=== PATIENT | male | born 1950 | race Caucasian/White ===

== ENCOUNTER 2017-11-19 06:00 | Emergency (ER) | payer OTHER ==
[2017-11-19] MEDS ORDERED: Sodium Chloride 0.9% 10 ML Syringe FLUSH PRN (06:08)
--- NOTE | 2017-11-19 06:18 | EDM.PDOC ---
ED HPI GENERAL MEDICAL PROBLEM - General Chief Complaint: Respiratory Problem Stated Complaint: SOB Time Seen by Provider: 11/19/17 06:00 Source of Information: Reports: EMS, Other ([facility] alf nurse's) - History of Present Illness INITIAL COMMENTS - FREE TEXT/NARRATIVE: Patient woke up around 4:00 in the morning complaining of shortness of breath very anxious was given up when necessary Ativan and a DuoNeb and put on when necessary oxygen at 4 L was satting around 91% with 4 L without oxygen he was at 85% paramedics were dispatched to the [facility] and the patient was brought here by [facility] ambulance patient has history of CVA affecting the left side history of COPD diabetes mellitus2 PTSD vascular dementia left- sided weakness following CVA. 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 (4:30 AM) - Related Data Allergies Allergy/AdvReac Type Severity Reaction Status Date / Time gabapentin Allergy Cannot Verified 10/28/16 04:19 Remember hydrocodone Allergy Cannot Verified 10/28/16 04:19 Remember onabotulinumtoxinA Allergy Weakness Verified 10/28/16 04:19 [From Botox] propoxyphene Allergy Cannot Verified 10/28/16 04:19 Remember tizanidine Allergy Cannot Verified 10/28/16 04:19 Remember tramadol Allergy Weakness Verified 10/28/16 04:19 Home Meds: Home Meds Acetaminophen 650 mg PO Q4HR PRN 04/06/15 [History] Acetaminophen [Acetaminophen Extra Strength] 1,000 mg PO BID 04/06/15 [History] Albuterol/Ipratropium [DuoNeb 3.0-0.5 MG/3 ML] 3 ml NEB BID 04/06/15 [History] Albuterol/Ipratropium [DuoNeb 3.0-0.5 MG/3 ML] 3 ml NEB Q6HR PRN 04/06/15 [ History] Aspirin [Ecotrin] 325 mg PO DAILY 04/06/15 [History] Baclofen 5 mg PO BID@08,20 04/06/15 [History] DULoxetine [Cymbalta] 60 mg PO DAILY 04/06/15 [History] Docusate Sodium [Colace] 100 mg PO BID@08,18 04/06/15 [History] Fluocinonide [Lidex 0.05% Oint] 30 gm TOP BID PRN 04/06/15 [History] Hydrocortisone [Preparation H] 1 applic TP BID PRN 04/06/15 [History] LORazepam 0.5 mg PO BID@08,21 04/06/15 [History] Lisinopril 40 mg PO DAILY 04/06/15 [History] Magnesium Hydroxide [Milk of Magnesia] 30 ml PO BID PRN 04/06/15 [History] Melatonin/Pyridoxine HCl (B6) [Melatonin 3 mg Tablet] 1 each PO BEDTIME [History] Menthol [Biofreeze] 1 applic TOP QID PRN 04/06/15 [History] Mometasone Furoate [Asmanex 220 MCG] 1 puff INH BEDTIME 04/06/15 [History] Multivitamin [Gummi Bear Multivitamin] 1 tab PO DAILY 04/06/15 [History] Non-Formulary Medication [NF Drug] 1 lozenge PO ASDIRECTED PRN 04/06/15 [History ] OLANZapine [Olanzapine] 5 mg PO DAILY@199904/06/15 [History] Pantoprazole [Pantoprazole Sodium] 20 mg PO BID 04/06/15 [History] Polyvinyl Alcohol/Povidone [Refresh] 1 each EYEBOTH BID@,04/06/15 [History] Ranitidine [Zantac] 300 mg PO DAILY@199904/06/15 [History] Salmeterol Xinafoate [Serevent Diskus] 1 puff INH BID@,04/06/15 [History] Simethicone 160 mg PO TIDMEALS 04/06/15 [History] Sodium Chloride 0.9% 1 vial INH Q4HR PRN 04/06/15 [History] guaiFENesin/Dextromethorphan [Tussin Dm Liquid] 10 ml PO Q6HR PRN 04/06/15 [ History] Albuterol Sulfate [Proair Respiclick] 2 puff INH Q4H PRN 05/08/16 [History] Finasteride 5 mg PO DAILY@1800 05/08/16 [History] Insulin Aspart [NovoLOG] 10 unit SQ TIDMEALS 05/08/16 [History] Insulin Glargine,Hum.Rec.Anlog [Lantus Solostar] 56 unit SQ DAILY 05/08/16 [ History] LORazepam 0.5 mg PO BID PRN 05/08/16 [History] Loratadine 10 mg PO DAILY@2200 05/08/16 [History] Polyethylene Glycol 3350 [MiraLAX] 17 gm PO DAILY PRN 05/08/16 [History] amLODIPine [Norvasc] 5 mg PO BID 05/08/16 [History] Calcium Carb/Magnesium Hydrox [Antacid 1000-200 mg Tab Chew] 2 each PO Q4HR PRN 07/02/16 [History] Mag Hydrox/Al Hydrox/Simeth [Maalox Maximum Strength Susp] 15 - 30 ml PO Q4HR PRN 07/02/16 [History] Metoprolol Tartrate 100 mg PO BID 07/02/16 [History] Furosemide [Lasix] 40 mg PO DAILY #30 tablet 07/04/16 [Rx] Simvastatin [Zocor] 20 mg PO BEDTIME #30 tablet 07/04/16 [Rx] Carboxymethylcellulose/Lytes [Alphonse-Stir Oral Protivin] 1 spray PO Q2HR PRN 07/29/16 [History] Doxazosin [Cardura] 2 mg PO BID 07/29/16 [History] Gluc/Avtar-Msm#2/C/D3/Gurjit/Born [Uyohptnaqw-Xtngvxnutsi-CZK] 1 each PO BID [History] Non-Formulary Medication [NF Drug] 10 ml SSPIT Q4HR PRN 07/29/16 [History] Insulin Lispro [HumaLOG] See Protocol SUBCUT QIDACANDBED #1 pen 07/30/16 [Rx] Nitroglycerin 0.4 mg SL ASDIRECTED #20 tab.subl 07/30/16 [Rx] Bisacodyl 10 mg RC DAILY PRN 10/27/16 [History] Budesonide/Formoterol [Symbicort 160-4.5 MCG] 2 puff INH BID 10/27/16 [History] Fenofibrate,Micronized [Fenofibrate] 130 mg PO DAILY 10/27/16 [History] Pseudoephedrine HCl [Sudafed] 30 mg PO QID PRN 10/27/16 [History] Acetaminophen/oxyCODONE [Percocet 325-5 MG] 1 tab PO Q6H PRN #12 tablet [Rx] Past Medical History HEENT History: Reports: Allergic Rhinitis Other HEENT History: insufficient tears Cardiovascular History: Reports: Aneurysm, High Cholesterol, Hypertension Respiratory History: Reports: COPD, Sleep Apnea Gastrointestinal History: Reports: GERD, Other (See Below) Other Gastrointestinal History: constipation Other Genitourinary History: disorder of bladder Musculoskeletal History: Reports: Osteoarthritis Other Musculoskeletal History: disuse atrophy Neurological History: Reports: CVA, Other (See Below) Other Neuro History: hemiplegia, involuntary movements, cerebral atherosclerosis Psychiatric History: Reports: Anxiety, Depression, PTSD Endocrine/Metabolic History: Reports: Diabetes, Type II Immunologic History: Reports: None Oncologic (Cancer) History: Reports: None Dermatologic History: Reports: Cellulitis Other Dermatologic History: dermatitis - Past Surgical History Head Surgeries/Procedures: Reports: None Oncologic Surgical History: Reports: None Social & Family History - Family History Family Medical History: Noncontributory - Tobacco Use Smoking Status *Q: Former Smoker Used Tobacco, but Quit: Yes Month Tobacco Last Used: 16 YEARS Second Hand Smoke Exposure: No - Caffeine Use Caffeine Use: Reports: Coffee, Soda - Recreational Drug Use Recreational Drug Use: No ED ROS GENERAL - Review of Systems Review Of Systems: See Below Constitutional: Reports: Fever, Chills, Weakness HEENT: Reports: No Symptoms Respiratory: Reports: Shortness of Breath Endocrine: Reports: High Glucose (270) GI/Abdominal: Reports: No Symptoms : Reports: No Symptoms Musculoskeletal: Reports: Other (Left-sided hemiplegia secondary to CVA) Skin: Reports: No Symptoms Neurological: Reports: No Symptoms, Trouble Speaking (Increased), Other (Less verbal responsive) Psychiatric: Reports: Anxiety Free Text/Narrative/Comment: Patient is a 67-year-old who lives in the [facility] home was transferred to the hospital secondary to changes patient woke up at 4 AM with shortness of breath anxious saturations were 85% on room air he received an Ativan and a DuoNeb at that time I was placed on oxygen 4 L his sats eliseo to 91 % his temperature was 101.8 respiration rate elevated 28/m conditions did not improve despite nurses attempts ED EXAM, GENERAL - Physical Exam Exam: See Below Exam Limited By: Respiratory Distress General Appearance: WD/WN, Anxious, Moderate Distress Ears: Normal External Exam, Normal Canal, Hearing Grossly Normal, Normal TMs Ear Exam: Bilateral Ear: Auricle Normal, Canal Normal, TM normal Nose: Normal Inspection, Normal Mucosa, No Blood Throat/Mouth: Normal Inspection, Normal Lips, Normal Teeth, Normal Gums, Normal Oropharynx, Normal Voice, No Airway Compromise Head: Atraumatic, Normocephalic Neck: Normal Inspection, Supple, Non-Tender, Full Range of Motion Respiratory/Chest: Lungs Clear, Respiratory Distress, Other (Tachypneic) Cardiovascular: Regular Rate, Rhythm, Tachycardia GI/Abdominal: Pelvis Stable, Distended, Abnormal Bowel Sounds. No: Hernia, Mass , Hepatomegaly, Splenomegaly (Male) Exam: Deferred Rectal (Males) Exam: Deferred Extremities: No: Joint Swelling, Arm Pain, Teresa's Sign, Leg Pain, Increased Warmth, Mottled Neurological: Normal Gait. No: Alert, Oriented, Normal Cognition, Normal Reflexes Psychiatric: Anxious Skin Exam: Warm, Dry Lymphatic: No Adenopathy Course - Vital Signs Last Recorded V/S: Last Vital Signs Temp 103.3 F H 11/19/17 06:02 Pulse 129 H 11/19/17 06:02 Resp 30 H 11/19/17 06:02 BP 149/67 H 11/19/17 06:02 Pulse Ox 93 L 11/19/17 06:02 - Orders/Labs/Meds Orders: Active Orders 24 hr Category Date Time Status EKG Documentation Completion [RC] ASDIRECTED Care 11/19/17 06:09 Active Hull Catheter Insertion [Insert Urinary Catheter] [OM. Care 11/19/17 07:00 Ordered PC] Q24H Oxygen Therapy [RC] PRN Care 11/19/17 06:08 Active Urinary Catheter Assessment [RC] ASDIRECTED Care 11/19/17 06:58 Active Chest 1V Frontal [CR] Stat Exams 11/19/17 06:07 Taken CULTURE BLOOD [BC] Stat Lab 11/19/17 06:15 Received CULTURE BLOOD [BC] Stat Lab 11/19/17 06:19 Received Levofloxacin/Dextrose 5%-Water [Levaquin in D5W 750 MG/ Med 11/19/17 07:00 Active 150 ML] 750 mg Premix Bag 1 bag IV ONETIME Sodium Chloride 0.9% [Saline Flush] Med 11/19/17 06:08 Active 10 ml FLUSH ASDIRECTED PRN metroNIDAZOLE/Normal Saline [Flagyl 500 MG in NS 100 ML Med 11/19/17 07:15 Active ] 500 mg Premix Bag 1 bag IV Q8H Blood Culture x2 Reflex Set [OM.PC] Stat Oth 11/19/17 06:07 Ordered Saline Lock Insert [OM.PC] Stat Oth 11/19/17 06:08 Ordered Medication Orders Levofloxacin/Dextrose 750 mg/ (Premix) 150 mls @ 100 mls/hr IV ONETIME ONE Stop: 11/19/17 08:29 Last Admin: 11/19/17 07:30 Dose: 100 mls/hr Metronidazole 500 mg/ Premix 100 mls @ 100 mls/hr IV Q8H CHRIS Sodium Chloride (Saline Flush) 10 ml FLUSH ASDIRECTED PRN PRN Reason: Keep Vein Open Labs: Laboratory Tests 11/19/17 11/19/17 11/19/17 Range/Units 06:15 06:19 06:19 WBC (4.0-10.2) K/uL RBC (4.33-5.41) M/uL Hgb (13.1-16.8) g/dL Hct (39.0-49.0) % MCV (84.0-98.0) fL MCH (28.2-33.3) pg MCHC (31.7-36.0) g/dL RDW (11.2-14.1) % Plt Count (150-350) K/uL Neut % (Auto) (45.0-80.0) % Lymph % (Auto) (10.0-50.0) % Ellis % (Auto) (2.0-14.0) % Eos % (Auto) (0.0-5.0) % Baso % (Auto) (0.0-2.0) % Neut # (Auto) (1.40-7.00) K/uL Lymph # (Auto) (0.50-3.50) K/uL Ellis # (Auto) (0.00-1.00) K/uL Eos # (Auto) (0.00-0.50) K/uL Baso # (Auto) (0.00-0.20) K/uL D-Dimer, Quantitative 318 (0-400) ng/mL Sodium 139 (136-145) mmol/L Potassium 4.3 (3.5-5.1) mmol/L Chloride 102 (98-107) mmol/L Carbon Dioxide 24.5 (21.0-32.0) mmol/L BUN 31 H (7-18) mg/dL Creatinine 1.50 H (0.51-1.17) mg/dL Est Cr Clr Drug Dosing 47.79 mL/min Estimated GFR (MDRD) 47 mL/min Glucose 189 H (74-106) mg/dL Lactic Acid (0.4-2.0) mmol/L Calcium 9.3 (8.5-10.1) mg/dL Troponin I 0.460 H* (0.000-0.056) ng/mL Specimen Type Urine Color Urine Appearance Urine pH (5.0-9.0) Ur Specific [place] (1.005-1.030) Urine Protein (NEGATIVE) mg/dL Urine Glucose (UA) (NEGATIVE) mg/dL Urine Ketones (NEGATIVE) mg/dL Urine Occult Blood (NEGATIVE) Urine Nitrite (NEGATIVE) Urine Bilirubin (NEGATIVE) Urine Urobilinogen (0.2-1.0) E.U./dL Ur Leukocyte Esterase (NEGATIVE) Urine RBC /HPF Urine WBC /HPF Ur Epithelial Cells /LPF Urine Bacteria (NONE TO FEW) /HPF 11/19/17 11/19/17 11/19/17 Range/Units 06:40 06:40 07:17 WBC 19.1 H (4.0-10.2) K/uL RBC 4.44 (4.33-5.41) M/uL Hgb 12.8 L (13.1-16.8) g/dL Hct 37.8 L (39.0-49.0) % MCV 85.1 (84.0-98.0) fL MCH 28.8 (28.2-33.3) pg MCHC 33.9 (31.7-36.0) g/dL RDW 14.1 (11.2-14.1) % Plt Count 238 (150-350) K/uL Neut % (Auto) 84.0 H (45.0-80.0) % Lymph % (Auto) 6.1 L (10.0-50.0) % Ellis % (Auto) 9.4 (2.0-14.0) % Eos % (Auto) 0.3 (0.0-5.0) % Baso % (Auto) 0.2 (0.0-2.0) % Neut # (Auto) 16.04 H (1.40-7.00) K/uL Lymph # (Auto) 1.16 (0.50-3.50) K/uL Ellis # (Auto) 1.79 H (0.00-1.00) K/uL Eos # (Auto) 0.05 (0.00-0.50) K/uL Baso # (Auto) 0.04 (0.00-0.20) K/uL D-Dimer, Quantitative (0-400) ng/mL Sodium (136-145) mmol/L Potassium (3.5-5.1) mmol/L Chloride (98-107) mmol/L Carbon Dioxide (21.0-32.0) mmol/L BUN (7-18) mg/dL Creatinine (0.51-1.17) mg/dL Est Cr Clr Drug Dosing mL/min Estimated GFR (MDRD) mL/min Glucose (74-106) mg/dL Lactic Acid 1.5 (0.4-2.0) mmol/L Calcium (8.5-10.1) mg/dL Troponin I (0.000-0.056) ng/mL Specimen Type Urinfol Urine Color Yellow Urine Appearance Clear Urine pH 5.5 (5.0-9.0) Ur Specific [place] 1.015 (1.005-1.030) Urine Protein 100 H (NEGATIVE) mg/dL Urine Glucose (UA) 250 H (NEGATIVE) mg/dL Urine Ketones Negative (NEGATIVE) mg/dL Urine Occult Blood Small H (NEGATIVE) Urine Nitrite Negative (NEGATIVE) Urine Bilirubin Negative (NEGATIVE) Urine Urobilinogen 1.0 (0.2-1.0) E.U./dL Ur Leukocyte Esterase Negative (NEGATIVE) Urine RBC 0-5 /HPF Urine WBC 0-5 /HPF Ur Epithelial Cells Few /LPF Urine Bacteria Few (NONE TO FEW) /HPF Meds: Medications Generic Name Dose Route Start Last Admin Trade Name Freq PRN Reason Stop Dose Admin Levofloxacin/Dextrose 750 mg/ 150 mls @ 100 mls/hr 11/19/17 07:00 11/19/17 07 :30 Premix IV 11/19/17 08:29 100 mls/hr ONETIME ONE Administration Metronidazole 500 mg/ Premix 100 mls @ 100 mls/hr 11/19/17 07:15 IV Q8H CHRIS Sodium Chloride 10 ml 11/19/17 06:08 Saline Flush FLUSH ASDIRECTED PRN Keep Vein Open Discontinued Medications Generic Name Dose Route Start Last Admin Trade Name Debbie PRN Reason Stop Dose Admin Morphine Sulfate 2 mg 11/19/17 07:43 Morphine IVPUSH 11/19/17 07:44 ONETIME ONE Departure - Departure Time of Disposition: 07:37 Disposition: DC/Tfer to Acute Hospital 02 Condition: Serious Clinical Impression: Pneumonia - Discharge Information Referrals: Padmini Reyes MD [Primary Care Provider] - Forms: ED Department Discharge Care Plan Goals: Patient is a status post stroke who presents with pneumonia like symptoms anxiety shortness of breath chest x-ray revealed left lower lobe pneumonia white count was elevated at 19.1 so [facility]49 [facility] with [facility] opacities so [facility] transfer r was called - Problem List & Annotations (1) Pneumonia SNOMED Code(s): 545531463 Code(s): J18.9 - PNEUMONIA, UNSPECIFIED ORGANISM Status: Acute Annotation /Comment:: Patient started on antibiotics discussed with physician at [facility] will transfer via ambulance (2) Respiratory distress SNOMED Code(s): 415117049 Code(s): R06.00 - DYSPNEA, UNSPECIFIED Status: Acute (3) Anxiety SNOMED Code(s): 13240862 Code(s): F41.9 - ANXIETY DISORDER, UNSPECIFIED Status: Acute Annotation/ Comment:: Patient given Ativan at the alf will give morphine sulfate at this time (4) Status post CVA SNOMED Code(s): 742732124 Code(s): Z86.73 - PRSNL HX OF TIA (TIA), AND CEREB INFRC W/O RESID DEFICITS Status: Acute (5) Status post CVA SNOMED Code(s): 224825010 Code(s): Z86.73 - PRSNL HX OF TIA (TIA), AND CEREB INFRC W/O RESID DEFICITS Status: Acute - Problem List Review Problem List Initiated/Reviewed/Updated: Yes - My Orders Last 24 Hours: My Active Orders 11/19/17 06:07 Chest 1V Frontal [CR] Stat Blood Culture x2 Reflex Set [OM.PC] Stat 11/19/17 06:08 Oxygen Therapy [RC] PRN Sodium Chloride 0.9% [Saline Flush] 10 ml FLUSH ASDIRECTED PRN Saline Lock Insert [OM.PC] Stat 11/19/17 06:09 EKG Documentation Completion [RC] ASDIRECTED 11/19/17 06:15 CULTURE BLOOD [BC] Stat 11/19/17 06:19 CULTURE BLOOD [BC] Stat 11/19/17 06:58 Urinary Catheter Assessment [RC] ASDIRECTED 11/19/17 07:00 Hull Catheter Insertion [Insert Urinary Catheter] [OM.PC] Q24H Levofloxacin/Dextrose 5%-Water [Levaquin in D5W 750 MG/150 ML] 750 mg Premix Bag 1 bag IV ONETIME 11/19/17 07:15 metroNIDAZOLE/Normal Saline [Flagyl 500 MG in NS 100 ML] 500 mg Premix Bag 1 bag IV Q8H - Assessment/Plan Last 24 Hours: My Active Orders 11/19/17 06:07 Chest 1V Frontal [CR] Stat Blood Culture x2 Reflex Set [OM.PC] Stat 11/19/17 06:08 Oxygen Therapy [RC] PRN Sodium Chloride 0.9% [Saline Flush] 10 ml FLUSH ASDIRECTED PRN Saline Lock Insert [OM.PC] Stat 11/19/17 06:09 EKG Documentation Completion [RC] ASDIRECTED 11/19/17 06:15 CULTURE BLOOD [BC] Stat 11/19/17 06:19 CULTURE BLOOD [BC] Stat 11/19/17 06:58 Urinary Catheter Assessment [RC] ASDIRECTED 11/19/17 07:00 Hull Catheter Insertion [Insert Urinary Catheter] [OM.PC] Q24H Levofloxacin/Dextrose 5%-Water [Levaquin in D5W 750 MG/150 ML] 750 mg Premix Bag 1 bag IV ONETIME 11/19/17 07:15 metroNIDAZOLE/Normal Saline [Flagyl 500 MG in NS 100 ML] 500 mg Premix Bag 1 bag IV Q8H Plan: Patient is status post CVA with left-sided weakness at this time stable
[2017-11-19] MEDS ORDERED: Levofloxacin/Dextrose 5%-Water 750 MG in Premix Bag 1 BAG IV ONE (07:00)
[2017-11-19] MEDS ORDERED: metroNIDAZOLE/Normal Saline 500 MG in Premix Bag 1 BAG IV SCH (07:15)
[2017-11-19] MEDS ORDERED: Morphine 2 MG/ML Syringe ONE (07:43)
[2017-11-19] MEDS ORDERED: Morphine 2 MG/ML Syringe IVPUSH ONE (07:43)
[2017-11-19] MEDS ORDERED: Metoprolol Tartrate 5 MG/5 ML SDV IVPUSH ONE (07:55)
[2017-11-19] MEDS ORDERED: Metoprolol Tartrate 50 MG Tab PO ONE (07:56)
[2017-11-19 08:46] VITALS: BP 121/46
== END 2017-11-19 08:45 ==
LOC: LL.ED 06:00
DX: J18.9 Pneumonia, unspecified organism (principal); E78.00 Pure hypercholesterolemia, unspecified; I10 Essential (primary) hypertension; K21.9 Gastro-esophageal reflux disease without esophagitis; E11.9 Type 2 diabetes mellitus without complications; Z87.891 Personal history of nicotine dependence; Z88.8 Allergy status to other drugs, medicaments and biological substances; Z88.6 Allergy status to analgesic agent; Z79.82 Long term (current) use of aspirin; Z79.899 Other long term (current) drug therapy; Z79.4 Long term (current) use of insulin
CPT/HCPCS: 36415; 51702; 71045; 80048; 81001; 83605; 84484; 85025; 85379; 87040; 87804; 93005; 94761; 96365; 96375; 99285; A9270; J1956; J2270; 93010; J3490

== ENCOUNTER 2018-01-03 03:22 | Emergency (ER) | payer MEDICARE, OTHER ==
[2018-01-03] MEDS ORDERED: Sodium Chloride 0.9% 10 ML Syringe FLUSH PRN (03:31)
--- NOTE | 2018-01-03 04:14 | EDM.PDOC ---
ED HPI GENERAL MEDICAL PROBLEM - General Chief Complaint: Respiratory Problem Stated Complaint: cough, SOB Time Seen by Provider: 01/03/18 03:53 Source of Information: Reports: Patient History Limitations: Reports: Other (Hx CVA/vascular dementia/slurred speech) - History of Present Illness INITIAL COMMENTS - FREE TEXT/NARRATIVE: Patient sent here for evaluation due to congested cough/respiratory illness that has been present for several days. No fevers. No GI changes. Patient denies HEENT changes. Complains of cough and of not being able to cough out his respiratory secretions well. [place] gave him a neb prior to coming. [place] staff do not report any other changes. No other specific changes/complaints per patient and staff. - Related Data Allergies Allergy/AdvReac Type Severity Reaction Status Date / Time gabapentin Allergy Cannot Verified 01/03/18 03:31 Remember hydrocodone Allergy Cannot Verified 01/03/18 03:31 Remember onabotulinumtoxinA Allergy Weakness Verified 01/03/18 03:31 [From Botox] propoxyphene Allergy Cannot Verified 01/03/18 03:31 Remember tizanidine Allergy Cannot Verified 01/03/18 03:31 Remember tramadol Allergy Weakness Verified 01/03/18 03:31 Home Meds: Home Meds Acetaminophen 650 mg PO Q4HR PRN 04/06/15 [History] Acetaminophen [Acetaminophen Extra Strength] 1,000 mg PO BID 04/06/15 [History] Albuterol/Ipratropium [DuoNeb 3.0-0.5 MG/3 ML] 3 ml NEB Q6HR PRN 04/06/15 [ History] Baclofen 5 mg PO BID@,04/06/15 [History] DULoxetine [Cymbalta] 30 mg PO DAILY 04/06/15 [History] Docusate Sodium [Colace] 100 mg PO BID@,18 04/06/15 [History] Fluocinonide [Lidex 0.05% Oint] 1 applic TOP BID PRN 04/06/15 [History] LORazepam 0.5 mg PO BID@08,04/06/15 [History] Magnesium Hydroxide [Milk of Magnesia] 30 ml PO BID PRN 04/06/15 [History] Melatonin/Pyridoxine HCl (B6) [Melatonin 3 mg Tablet] 2 tab PO BEDTIME 04/06/15 [History] Menthol [Biofreeze] 1 applic TOP QID PRN 04/06/15 [History] OLANZapine [Olanzapine] 5 mg PO DAILY@199904/06/15 [History] Pantoprazole [Pantoprazole Sodium] 20 mg PO BID 04/06/15 [History] Polyvinyl Alcohol/Povidone [Refresh] 1 each EYEBOTH BID@08,20 04/06/15 [History] Sodium Chloride 0.9% 1 vial INH Q4HR PRN 04/06/15 [History] guaiFENesin/Dextromethorphan [Tussin Dm Liquid] 10 ml PO Q6HR PRN 04/06/15 [ History] Finasteride 5 mg PO DAILY@1800 05/08/16 [History] Insulin Aspart [NovoLOG] 20 unit SQ TIDMEALS 05/08/16 [History] Insulin Glargine,Hum.Rec.Anlog [Lantus Solostar] 70 unit SQ DAILY 05/08/16 [ History] LORazepam 0.5 mg PO DAILY PRN 05/08/16 [History] Loratadine 10 mg PO DAILY@2200 05/08/16 [History] Polyethylene Glycol 3350 [MiraLAX] 17 gm PO DAILY PRN 05/08/16 [History] amLODIPine [Norvasc] 5 mg PO DAILY 05/08/16 [History] Carboxymethylcellulose/Lytes [Alphonse-Stir Oral [place]] 1 spray PO Q2HR PRN 07/29/16 [History] Doxazosin [Cardura] 2 mg PO BID 07/29/16 [History] Gluc/Avtar-Msm#2/C/D3/Gurjit/Born [Zaxmqtusjt-Lbzkewflpcj-ZOP] 1 each PO BID [History] Bisacodyl 10 mg RC DAILY PRN 10/27/16 [History] Budesonide/Formoterol [Symbicort 160-4.5 MCG] 2 puff INH BID 10/27/16 [History] Pseudoephedrine HCl [Sudafed] 30 mg PO Q6H PRN 10/27/16 [History] Albuterol Sulfate [Proair Respiclick] 2 puff INH Q4H PRN 11/19/17 [History] Benzocaine [Anbesol 20% Maximum Strength] 1 gram PO ASDIRECTED PRN 11/19/17 [ History] DULoxetine [Cymbalta] 60 mg PO DAILY 11/19/17 [History] Ipratropium/Albuterol Sulfate [Iprat-Albut 0.5-3(2.5) MG/3 ML] 2.5 mg NEB BID [History] Mag Hydrox/Al Hydrox/Simeth [Alum-Mag Hydroxide-Simeth Liq] 15 - 30 ml PO Q4HR PRN 11/19/17 [History] Menthol [Ricola] 1.1 mg MM QID PRN 11/19/17 [History] Mineral Oil/Petrolat/Phenyleph [Preparation H Oint] 1 unit TOP BID PRN 11/19/17 [History] Nitroglycerin 0.4 mg SL ASDIRECTED PRN 11/19/17 [History] Aspirin 81 mg PO DAILY 01/03/18 [History] Benzonatate [Tessalon Perle] 100 mg PO TID PRN #20 capsule 01/03/18 [Rx] Clopidogrel [Plavix] 75 mg PO DAILY 01/03/18 [History] Doxycycline [Vibramycin] 100 mg PO BID #14 cap 01/03/18 [Rx] Fenofibrate 160 mg PO DAILY 01/03/18 [History] Furosemide 20 mg PO DAILY 01/03/18 [History] Lisinopril 10 mg PO DAILY 01/03/18 [History] Metoprolol Succinate [Toprol XL] 200 mg PO DAILY 01/03/18 [History] atorvaSTATin [Lipitor] 40 mg PO DAILY 01/03/18 [History] Past Medical History HEENT History: Reports: Allergic Rhinitis Other HEENT History: insufficient tears Cardiovascular History: Reports: Aneurysm, High Cholesterol, Hypertension, [place] Respiratory History: Reports: COPD, Sleep Apnea Gastrointestinal History: Reports: GERD, Other (See Below) Other Gastrointestinal History: constipation Genitourinary History: Reports: Other (See Below) Other Genitourinary History: disorder of bladder Musculoskeletal History: Reports: Osteoarthritis, Other (See Below) Other Musculoskeletal History: disuse atrophy Neurological History: Reports: CVA, Other (See Below) Other Neuro History: hemiplegia, involuntary movements, cerebral atherosclerosis Psychiatric History: Reports: Anxiety, Depression, PTSD Endocrine/Metabolic History: Reports: Diabetes, Type II, Obesity/BMI 30+ Immunologic History: Reports: None Oncologic (Cancer) History: Reports: None Dermatologic History: Reports: Cellulitis Other Dermatologic History: dermatitis - Past Surgical History Head Surgeries/Procedures: Reports: None Oncologic Surgical History: Reports: None Social & Family History - Family History Family Medical History: Noncontributory - Tobacco Use Smoking Status *Q: Former Smoker Used Tobacco, but Quit: Yes Month Tobacco Last Used: unknown Second Hand Smoke Exposure: No - Caffeine Use Caffeine Use: Reports: Coffee, Soda - Recreational Drug Use Recreational Drug Use: No ED ROS GENERAL - Review of Systems Review Of Systems: See Below Constitutional: Reports: No Symptoms. Denies: Fever, Chills HEENT: Denies: Ear Pain, Rhinitis, Sinus Problem, Throat Pain Respiratory: Reports: Cough, Sputum. Denies: Shortness of Breath, Wheezing, Pleuritic Chest Pain, Hemoptysis Cardiovascular: Reports: No Symptoms. Denies: Chest Pain GI/Abdominal: Reports: No Symptoms : Reports: No Symptoms Musculoskeletal: Reports: No Symptoms Skin: Reports: No Symptoms Neurological: Reports: No Symptoms Psychiatric: Reports: No Symptoms Hematologic/Lymphatic: Reports: No Symptoms ED EXAM, GENERAL - Physical Exam Exam: See Below Exam Limited By: No Limitations General Appearance: Alert, WD/WN, Anxious Eye Exam: Bilateral Eye: EOMI, PERRL Ears: Normal External Exam, Normal Canal, Hearing Grossly Normal, Normal TMs Nose: No: Nasal Deformity, Nasal Swelling, Nasal Drainage Throat/Mouth: Normal Lips, Normal Gums, Normal Oropharynx, Normal Voice, No Airway Compromise Head: Atraumatic, Normocephalic Neck: Normal Inspection, Supple, Non-Tender, Full Range of Motion Respiratory/Chest: No Respiratory Distress, No Accessory Muscle Use, Other ( Patient does not take deep breath, even when asked. Decreased breath sounds at bases. No rales/crackles noted. Does have transmitted upper airway congestion sounds however. ). No: Crackles, Rales, Wheezing, Stridor, Accessory Muscle Use , Retractions Cardiovascular: Normal Peripheral Pulses, Regular Rate, Rhythm, No Murmur Peripheral Pulses: 2+: Radial (L), Radial (R) GI/Abdominal: Normal Bowel Sounds, Soft, Non-Tender, Other (very rounded. ) (Male) Exam: Deferred Rectal (Males) Exam: Deferred Back Exam: No: CVA Tenderness (L), CVA Tenderness (R) Extremities: Non-Tender, Normal Capillary Refill, Limited Range of Motion (left sided weakness due to CVA) Neurological: Alert, Sensory/Motor Deficit (left sided weakness due to CVA) Psychiatric: Anxious (mild) Skin Exam: Warm, Dry, Intact, Normal Color EKG INTERPRETATION EKG Date: 01/03/18 Time: 03:50 Rhythm: Other (sinus. 1st degree block.) Rate (Beats/Min): 91 [place]: Normal P-Wave: Present QRS: Normal ST-T: Normal QT: Normal Comparison: Change From Previous EKG (T wave inversion noted V1) Course - Vital Signs Last Recorded V/S: Last Vital Signs Temp 36.9 C 01/03/18 03:25 Pulse 97 01/03/18 04:05 Resp 24 H 01/03/18 04:05 BP 124/92 H 01/03/18 04:05 Pulse Ox 95 01/03/18 04:05 - Orders/Labs/Meds Orders: Active Orders 24 hr Category Date Time Status Cardiac Monitoring [RC] . DIRECTED Care 01/03/18 03:31 Active EKG Documentation Completion [RC] ASDIRECTED Care 01/03/18 03:30 Active Oxygen Therapy, ED [RC] ASDIRECTED Care 01/03/18 03:31 Active RT Aerosol Therapy [RC] ASDIRECTED Care 01/03/18 04:26 Active Chest 1V Frontal [CR] Stat Exams 01/03/18 03:30 Taken Sodium Chloride 0.9% [Saline Flush] Med 01/03/18 03:31 Active 10 ml FLUSH ASDIRECTED PRN Saline Lock Insert [OM.PC] Routine Oth 01/03/18 03:31 Ordered Medication Orders Sodium Chloride (Saline Flush) 10 ml FLUSH ASDIRECTED PRN PRN Reason: Keep Vein Open Last Admin: 01/03/18 04:50 Dose: 10 ml Labs: Laboratory Tests 01/03/18 01/03/18 Range/Units 03:45 03:45 WBC 8.1 (4.0-10.2) K/uL RBC 4.24 L (4.33-5.41) M/uL Hgb 12.2 L (13.1-16.8) g/dL Hct 36.5 L (39.0-49.0) % MCV 86.1 (84.0-98.0) fL MCH 28.8 (28.2-33.3) pg MCHC 33.4 (31.7-36.0) g/dL RDW 14.5 H (11.2-14.1) % Plt Count 270 (150-350) K/uL Neut % (Auto) 59.7 (45.0-80.0) % Lymph % (Auto) 19.3 (10.0-50.0) % [place] % (Auto) 19.4 H (2.0-14.0) % Eos % (Auto) 1.4 (0.0-5.0) % Baso % (Auto) 0.2 (0.0-2.0) % Neut # (Auto) 4.84 (1.40-7.00) K/uL Lymph # (Auto) 1.56 (0.50-3.50) K/uL [place] # (Auto) 1.57 H (0.00-1.00) K/uL Eos # (Auto) 0.11 (0.00-0.50) K/uL Baso # (Auto) 0.02 (0.00-0.20) K/uL Sodium 137 (136-145) mmol/L Potassium 4.2 (3.5-5.1) mmol/L Chloride 99 (98-107) mmol/L Carbon Dioxide 29.4 (21.0-32.0) mmol/L BUN 27 H (7-18) mg/dL Creatinine 1.39 H (0.51-1.17) mg/dL Est Cr Clr Drug Dosing 51.57 mL/min Estimated GFR (MDRD) 51 mL/min Glucose 259 H* (74-106) mg/dL Calcium 9.1 (8.5-10.1) mg/dL Total Bilirubin 0.6 (0.2-1.0) mg/dL AST 25 (15-37) U/L ALT 46 (12-78) U/L Alkaline Phosphatase 190 H (46-116) IU/L Creatine Kinase 93 (26-308) U/L Creatine Kinase Index 1.4 (0.0-2.5) % CK-MB (CK-2) 1.30 (0.00-3.60) ng/mL Troponin I 0.000 (0.000-0.056) ng/mL NT-Pro-B Natriuret Pep 552 H (0-125) pg/mL Total Protein 8.0 (6.4-8.2) g/dL Albumin 3.3 L (3.4-5.0) g/dL Meds: Medications Generic Name Dose Route Start Last Admin Trade Name Debbie PRN Reason Stop Dose Admin Sodium Chloride 10 ml 01/03/18 03:31 01/03/18 04:50 Saline Flush FLUSH 10 ml ASDIRECTED PRN Administration Keep Vein Open Discontinued Medications Generic Name Dose Route Start Last Admin Trade Name Freq PRN Reason Stop Dose Admin Albuterol/Ipratropium 3 ml 01/03/18 04:26 01/03/18 04:38 Duoneb 3.0-0.5 Mg/3 Ml NEB 01/03/18 04:27 3 ml ONETIME ONE Administration Benzonatate 200 mg 01/03/18 04:24 01/03/18 04:38 Tessalon Perles PO 01/03/18 04:25 200 mg ONETIME ONE Administration Furosemide 20 mg 01/03/18 04:28 01/03/18 04:38 Lasix IVPUSH 01/03/18 04:29 20 mg ONETIME ONE Administration Azithromycin 500 mg/ Sodium 250 mls @ 250 mls/hr 01/03/18 04:35 01/03/18 04: 49 Chloride IV 01/03/18 05:34 250 mls/hr ONETIME ONE Administration Insulin Human Regular 8 unit 01/03/18 04:32 01/03/18 04:52 Humulin R SUBCUT 01/03/18 04:33 8 units ONETIME ONE Administration Lorazepam 0.5 mg 01/03/18 04:36 01/03/18 04:47 Ativan PO 01/03/18 04:37 0.5 mg ONETIME ONE Administration Prednisone 40 mg 01/03/18 04:28 01/03/18 04:38 Prednisone PO 01/03/18 04:29 40 mg ONETIME ONE Administration - Radiology Interpretation Free Text/Narrative:: Chest xray shows cardiomegaly. No focal infiltrate identified. Much improved when compared to November chest film that did show a left sided infiltrate at that time. - Re-Assessments/Exams Free Text/Narrative Re-Assessment/Exam: 01/03/18 04:39 Patient noted to have O2 sats 91-92% on room air. Troponin/CKMB negative. EKG did not suggest ischemia. ProBNP 552, mildly elevated. WBC Normal. Hgb above 12. Patient is usually around this range. History of renal insufficiency, Cr is 1.39 Patient afebrile, VSS Patient observed to be sometimes moaning/vocalizing with expiration, behavioral component suggested. Intermittent mildly congested cough noted. Lungs clear with transmitted upper airway congestion. Suspect strongly that this is due to viral URI. Additional anxiety component. Will place patient on course of Doxy given his complex past medical history. Single neb given, single dose of prednisone/lasix/ativan given. [facility] is to [facility] patient for changes and is to have him follow up as needed. Can continue his PRN O2 order to keep O2 sats above 91%. Tessalon for PRN use also given. To follow up as needed. Free Text/Narrative Re-Assessment/Exam: 01/03/18 07:16 Patient noted to frequently be making a significant amount of noise intermittently while making effort to cough up sputum. The amount of effort varied depending on if staff were inside room or outside. Interestingly this all ceased when a second ER patient arrived. Patient was noted to try to be watching what was going on in the second ER bed. This observation tends to confirm suspicion that a good portion of patient's respiratory behaviors and vocalizations are likely behavioral/attention seeking in nature. Towards end of stay patient also urinated while sitting in his wheelchair, even though he had the call light right next to him. He offered no explanation as to why he did not call for help/assistance in using restroom. He then wanted to refuse a change of clothes and [facility]. Finally, he was angry that he arrived before the second patient, and that the second patient left the ER before him. Departure - Departure Time of Disposition: 06:30 Disposition: DC/[facility] to [facility]/[place] [facility] Condition: Good Clinical Impression: Viral respiratory infection, Anxiety, Behavioral disorder - Discharge Information Prescriptions: Benzonatate [Tessalon Perle] 100 mg PO TID PRN #20 capsule PRN Reason: Cough Doxycycline [Vibramycin] 100 mg PO BID #14 cap Referrals: Maya Lo PA [Primary Care Provider] - Forms: ED Department Discharge Additional Instructions: Give 8 units of regular Insulin SQ when patient returns to [place]. Watch for changes. Follow up as needed. Use oxygen via [place] PRN to keep sats greater than 91% Give Doxy for one week. Tessalon to be used PRN cough. Have patient followed up on clinic rounds this week for continued care. Follow up otherwise as needed if there are problems. - My Orders Last 24 Hours: My Active Orders 01/03/18 03:30 EKG Documentation Completion [RC] ASDIRECTED Chest 1V Frontal [CR] Stat 01/03/18 03:31 Cardiac Monitoring [RC] . DIRECTED Oxygen Therapy, ED [RC] ASDIRECTED Sodium Chloride 0.9% [Saline Flush] 10 ml FLUSH ASDIRECTED PRN Saline Lock Insert [OM.PC] Routine 01/03/18 04:26 RT Aerosol Therapy [RC] ASDIRECTED - Assessment/Plan Last 24 Hours: My Active Orders 01/03/18 03:30 EKG Documentation Completion [RC] ASDIRECTED Chest 1V Frontal [CR] Stat 01/03/18 03:31 Cardiac Monitoring [RC] . DIRECTED Oxygen Therapy, ED [RC] ASDIRECTED Sodium Chloride 0.9% [Saline Flush] 10 ml FLUSH ASDIRECTED PRN Saline Lock Insert [OM.PC] Routine 01/03/18 04:26 RT Aerosol Therapy [RC] ASDIRECTED
[2018-01-03] MEDS ORDERED: Benzonatate 100 MG Cap PO ONE (04:24)
[2018-01-03] MEDS ORDERED: Albuterol/Ipratropium 3.0-0.5 MG/3 ML Neb Soln NEB ONE (04:26)
[2018-01-03] MEDS ORDERED: Furosemide 20 MG/2 ML VIAL IVPUSH ONE (04:28)
[2018-01-03] MEDS ORDERED: predniSONE 20 MG Tab PO ONE (04:28)
[2018-01-03] MEDS ORDERED: Insulin Regular, Human 100 Units/ML 3 ML Vial SUBCUT ONE (04:32)
[2018-01-03] MEDS ORDERED: Azithromycin 500 MG in Sodium Chloride 0.9% 250 ML IV ONE (04:35)
[2018-01-03] MEDS ORDERED: LORazepam 0.5 MG Tab PO ONE (04:36)
[2018-01-03 08:08] VITALS: BP 158/79
== END 2018-01-03 07:06 ==
LOC: LL.ED 03:22
DX: J98.8 Other specified respiratory disorders (principal); B97.89 Other viral agents as the cause of diseases classified elsewhere; F41.9 Anxiety disorder, unspecified; R46.89 Other symptoms and signs involving appearance and behavior; E78.00 Pure hypercholesterolemia, unspecified; I25.2 Old myocardial infarction; I10 Essential (primary) hypertension; E11.9 Type 2 diabetes mellitus without complications; J44.9 Chronic obstructive pulmonary disease, unspecified; K21.9 Gastro-esophageal reflux disease without esophagitis; E66.9 Obesity, unspecified; Z87.891 Personal history of nicotine dependence; J06.9 Acute upper respiratory infection, unspecified; Z88.8 Allergy status to other drugs, medicaments and biological substances; Z88.5 Allergy status to narcotic agent; Z79.899 Other long term (current) drug therapy; Z79.4 Long term (current) use of insulin; Z79.82 Long term (current) use of aspirin
CPT/HCPCS: 36415; 71045; 80053; 82550; 82553; 83880; 84484; 85025; 93005; 96365; 96372; 96375; 99285; A9270; J0456; J1815; J1940; J7050; 99284

== ENCOUNTER 2018-06-27 13:54 | Emergency (ER) | payer OTHER ==
[2018-06-27] MEDS ORDERED: Famotidine 20 MG/2 ML SDV IVPUSH ONE (13:56)
[2018-06-27] MEDS ORDERED: Sodium Chloride 0.9% 10 ML Syringe FLUSH PRN (13:56)
--- NOTE | 2018-06-27 13:56 | EDM.PDOC ---
ED HPI GENERAL MEDICAL PROBLEM - General Chief Complaint: General Stated Complaint: Stroke Code Time Seen by Provider: 06/27/18 13:56 Source of Information: Reports: Patient, Custodial Records, Old Records ([facility] EMR. No paper hospital chart available.) History Limitations: Reports: Altered Mental Status - History of Present Illness INITIAL COMMENTS - FREE TEXT/NARRATIVE: The patient was brought to the emergency room via transport vehicle from [facility] in [place] secondary to sudden onset unresponsive episode shortly after eating lunch today with exact time of onset of symptoms unknown. Stat Accu-Chek at that time showed a blood sugar of 500 with 20 units of NovoLog ordered subcutaneous by his regular provider, Maya Lo PA-C, at [facility] . The patient has a long history of uncontrolled IDDM. He is an extremely poor story and secondary to his baseline organic brain syndrome. No apparent history of seizure activity, stool/urine incontinence, and fall, injury, etc. No recent history of abdominal pain, heartburn, nausea, diarrhea, melena, gross hematochezia, or any food intolerance, including fatty foods, etc.. The patient also denies any recent fever, cough, wheezing, dyspnea, etc.. He denies any pain or discomfort. Onset: Today, Unknown/Unsure Onset Date: 06/27/18 Duration: Constant Location: Denies: Head, Face, Neck, Chest, Abdomen, Back, Generalized, Radiates to Quality: Reports: Other (No pain) Improves with: Reports: None Worsens with: Reports: None Context: Reports: Other (As above). Denies: Sick Contact, Trauma Associated Symptoms: Reports: Confusion (Chronic), Weakness (Stable chronic moderate to severe left sided hemiparesis). Denies: Chest Pain, Cough, Diaphoresis, Fever/Chills, Headaches, Loss of Appetite, Malaise, Nausea/Vomiting , Seizure, Shortness of Breath, Syncope Treatments BUSINESS TEACHER: Reports: Insulin (As above) - Related Data Allergies Allergy/AdvReac Type Severity Reaction Status Date / Time gabapentin Allergy Cannot Verified 06/27/18 16:04 Remember hydrocodone Allergy Cannot Verified 06/27/18 16:04 Remember onabotulinumtoxinA Allergy Weakness Verified 06/27/18 16:04 [From Botox] propoxyphene Allergy Cannot Verified 06/27/18 16:04 Remember tizanidine Allergy Cannot Verified 06/27/18 16:04 Remember tramadol Allergy Weakness Verified 06/27/18 16:04 Home Meds: Home Meds Acetaminophen [Acetaminophen Extra Strength] 2 tab PO BID PRN 04/06/15 [History] Albuterol/Ipratropium [DuoNeb 3.0-0.5 MG/3 ML] 3 ml NEB BID 04/06/15 [History] Baclofen 5 mg PO BID@,04/06/15 [History] Docusate Sodium [Colace] 100 mg PO BID@,04/06/15 [History] LORazepam 0.5 mg PO BID@,04/06/15 [History] Magnesium Hydroxide [Milk of Magnesia] 30 ml PO BID PRN 04/06/15 [History] Melatonin/Pyridoxine HCl (B6) [Melatonin 3 mg Tablet] 2 tab PO BEDTIME 04/06/15 [History] Menthol [Biofreeze] 1 applic TOP QID PRN 04/06/15 [History] OLANZapine [Olanzapine] 5 mg PO DAILY@199904/06/15 [History] Pantoprazole [Pantoprazole Sodium] 20 mg PO BID 04/06/15 [History] Polyvinyl Alcohol/Povidone [Refresh] 1 each EYEBOTH BID@04/06/15 [History] guaiFENesin/Dextromethorphan [Tussin Dm Liquid] 10 ml PO Q6HR PRN 04/06/15 [ History] Finasteride 5 mg PO DAILY@0805/08/16 [History] Insulin Aspart [NovoLOG] 20 unit SQ TIDMEALS 05/08/16 [History] Insulin Glargine,Hum.Rec.Anlog [Lantus Solostar] 50 unit SQ DAILY 05/08/16 [ History] Loratadine 10 mg PO DAILY@0805/08/16 [History] Polyethylene Glycol 3350 [MiraLAX] 17 gm PO DAILY PRN 05/08/16 [History] amLODIPine [Norvasc] 5 mg PO DAILY 05/08/16 [History] Gluc/Avtar-Msm#2/C/D3/Gurjit/Born [Tgcxpvguap-Jlkwcpbpiwv-BAN] 1 each PO BID [History] Bisacodyl 10 mg RC DAILY PRN 10/27/16 [History] Budesonide/Formoterol [Symbicort 160-4.5 MCG] 2 puff INH BID 10/27/16 [History] DULoxetine [Cymbalta] 60 mg PO DAILY 11/19/17 [History] Ipratropium/Albuterol Sulfate [Iprat-Albut 0.5-3(2.5) MG/3 ML] 2.5 mg NEB Q6HR PRN 11/19/17 [History] Menthol [Ricola] 1.1 mg MM QID PRN 11/19/17 [History] Mineral Oil/Petrolat/Phenyleph [Preparation H Oint] 1 applic TOP BID PRN [History] Nitroglycerin 0.4 mg SL ASDIRECTED PRN 11/19/17 [History] Aspirin 81 mg PO DAILY 01/03/18 [History] Benzonatate [Tessalon Perle] 100 mg PO TID PRN #20 capsule 01/03/18 [Rx] Clopidogrel [Plavix] 75 mg PO DAILY 01/03/18 [History] Fenofibrate 160 mg PO DAILY 01/03/18 [History] Metoprolol Succinate [Toprol XL] 200 mg PO DAILY 01/03/18 [History] atorvaSTATin [Lipitor] 40 mg PO DAILY@1800 01/03/18 [History] Albuterol [Ventolin HFA] 2 puff INH Q4H PRN 06/12/18 [History] Calcium Carbonate 1 tab PO DAILY 06/12/18 [History] Cholecalciferol (Vitamin D3) [Vitamin D3] 1,000 units PO DAILY 06/12/18 [History ] Doxazosin Mesylate [Cardura] 4 mg PO BID 06/12/18 [History] Furosemide [Lasix] 40 mg PO BID@08,12 06/12/18 [History] Lisinopril [Prinivil] 20 mg PO BID 06/12/18 [History] Potassium Chloride 10 meq PO TID 06/12/18 [History] Ursodiol 500 mg PO BID 06/12/18 [History] Insulin Aspart [NovoLOG] See Protocol SQ WITHMEALSANDBED #1 bottle 06/27/18 [Rx] Past Medical History HEENT History: Reports: Allergic Rhinitis, Sinusitis Other HEENT History: Chronic eye syndrome. Diabetic retinopathy. Cardiovascular History: Reports: Aneurysm, Arrhythmia, CAD, Cardiomyopathy, Heart Failure, High Cholesterol, Hypertension, AK, PVD, Other (See Below). Denies: Blood Clots/VTE/DVT, Syncope Other Cardiovascular History: Ischemic and hypertensive cardiomyopathy with cardiomegaly and history of recurrent CHF. Non-STEMI on 07/02/16. Complete right bundle branch block and first-degree AV block. Dyslipidemia. Thoracic aortic aneurysm. Respiratory History: Reports: Bronchitis, Recurrent, COPD, Intubation, Previous , Pneumonia, Recurrent, Sleep Apnea, Other (See Below). Denies: Intubation, Difficult Other Respiratory History: History of recurrent aspiration pneumonia. Gastrointestinal History: Reports: Chronic Constipation, GERD, GI Bleed, Hemorrhoids, Irritable Bowel Syndrome, Other (See Below) Other Gastrointestinal History: History of lower GI bleed. History of gastric and duodenal polyps of unknown character. Fatty liver secondary to dyslipidemia. Primary biliary cirrhosis. Genitourinary History: Reports: Acute Renal Failure, BPH, Chronic Renal Insuffiency, Diabetic Nephropathy, Urinary Incontinence, UTI, Recurrent, Other ( See Below) Other Genitourinary History: Urinary frequency secondary to BPH, etc. Musculoskeletal History: Reports: Arthritis, Back Pain, Chronic, Fracture, Neck Pain, Chronic, Osteoarthritis, Other (See Below) Other Musculoskeletal History: Disuse muscular atrophy with chronic cramps/ spasms secondary to left-sided hemiparesis from previous CVA. Proximal metaphalangeal fracture of digit #5 of the left hand on 04/05/15. Neurological History: Reports: Alzheimers Disease, CVA, Neuropathy, Diabetic, Neuropathy, Peripheral, Other (See Below) Other Neuro History: Left-sided spastic hemiplegia, involuntary movements, cerebral microvascular disease, dysarthria and cerebral atrophy secondary to previous CVA Psychiatric History: Reports: Anxiety, Dementia, Depression, PTSD Endocrine/Metabolic History: Reports: Diabetes, Type II, IDDM, Obesity/BMI 30+, Other (See Below) Other Endocrine/Metabolic History: Hyponatremia, hypocalcemia, Hematologic History: Reports: Anemia Immunologic History: Reports: None Oncologic (Cancer) History: Reports: None Dermatologic History: Reports: Cellulitis Other Dermatologic History: dermatitis - Infectious Disease History Infectious Disease History: Reports: MRSA - Past Surgical History Oncologic Surgical History: Reports: None Other Surgical History Comment: Surgical history unknown. Social & Family History - Family History Family Medical History: Noncontributory - Caffeine Use Caffeine Use: Reports: Coffee, Soda - Living Situation & Occupation Living situation: Reports: Extended Care Facility ([facility] in [facility]) Occupation: Disabled ED ROS GENERAL - Review of Systems Review Of Systems: Unable To Obtain ED EXAM, GENERAL - Physical Exam Exam: See Below Exam Limited By: Altered Mental Status (Initial patient lethargy and baseline confusion) General Appearance: No Apparent Distress, Obtunded (Initially with patient becoming much more alert after treatment as below.) Eye Exam: Bilateral Eye: EOMI, Normal Fundi, Normal Inspection (No nystagmus), PERRL Ears: Normal External Exam, Normal Canal, Hearing Grossly Normal, Normal TMs Nose: Normal Inspection, Normal Mucosa, No Blood Throat/Mouth: Normal Inspection, Normal Lips, Normal Teeth (Multiple missing teeth with no evidence of caries), Normal Gums, Normal Oropharynx, Normal Voice , No Airway Compromise. No: Dysphagia, Perioral Cyanosis Head: Atraumatic, Normocephalic. No: Facial Swelling, Facial Tenderness, Sinus Tenderness Neck: Supple, Non-Tender, Full Range of Motion, Carotid Bruit (Bilateral carotid bruitsmild). No: Lymphadenopathy (L), Lymphadenopathy (R), Thyromegaly Respiratory/Chest: No Respiratory Distress, No Accessory Muscle Use, Chest Non- Tender, Rales (Bilateral basilar ralesmild). No: Pleural Rub, Retractions Cardiovascular: Normal Peripheral Pulses, Regular Rate, Rhythm, No Edema, No Gallop, No JVD, No Murmur, No Rub. No: Gallop/S3, Gallop/S4, Friction Rub Peripheral Pulses: 2+: Radial (L), Radial (R), Dorsalis Pedis (L), Dorsalis Pedis (R) GI/Abdominal: Normal Bowel Sounds, Soft, Non-Tender, No Organomegaly, No Distention, No Abnormal Bruit, No Mass, Pelvis Stable, Other (Obese). No: Guarding (Male) Exam: Deferred Rectal (Males) Exam: Deferred Back Exam: Normal Inspection, Full Range of Motion. No: CVA Tenderness (L), CVA Tenderness (R), Muscle Spasm Extremities: Non-Tender, No Pedal Edema, Normal Capillary Refill, Other (1 cm in diameter centimeter eschar over right patella. Short leg plantar splint on the left leg. Bilateral lower leg KARTHIKEYAN hose.). No: Teresa's Sign Neurological: Confused (Patient back to normal baseline confusion per nursing staff, who frequently take care of this patient. Note previous moderate lethargy secondary to hyperglycemia which quickly resolved with therapy as below ), Other (Stable moderate to severe left-sided hemiparesis) Psychiatric: Normal Affect, Normal Mood Skin Exam: Warm, Dry, No Rash, Wound/Incision (As above). No: Diaphoretic, Ecchymosis, Lymphangitis, Petechiae Lymphatic: No Adenopathy EKG INTERPRETATION EKG Date: 06/27/18 Time: 14:15 Rhythm: NSR Rate (Beats/Min): 80 Allyn: Normal (Left versus neutral cardiac axis which is a change from previous extended left cardiac axis at time of EKG on 06/22/18) P-Wave: Enlarged (Diffuse biphasic P wavesmoderate) QRS: RBBB (QRS interval of 0.16 seconds with T-wave inversion in leads V1 and V2 with resolution of previous T-wave inversion in lead V3 since last EKG on 06/12.) ST-T: Other (As above) QT: Normal WA/PQ Interval: 0.22 seconds representing a stable first-degree AV block Comparison: Change From Previous EKG (As above) EKG Interpretation Comments: 1. Probably stable chronic anterior wall cardiac ischemia 2. First-degree AV block 3. Complete right bundle branch block 4. Left atrial enlargement Course - Vital Signs Last Recorded V/S: Last Vital Signs Temp 36.4 C 06/27/18 15:29 Pulse 79 06/27/18 16:40 Resp 22 H 06/27/18 16:40 BP 146/75 H 06/27/18 16:40 Pulse Ox 96 06/27/18 16:40 Vital Signs - 24 hr 06/27/18 06/27/18 06/27/18 13:59 14:14 14:29 Temperature [ Temporal] Pulse, 79 78 77 Peripheral [ Brachial] Respiratory 20 Rate Blood Pressure 140/89 130/77 152/69 H [Upper Arm] O2 Sat by Pulse 94 L 94 L Oximetry 06/27/18 06/27/18 06/27/18 14:44 14:59 15:14 Temperature [ Temporal] Pulse, 78 80 81 Peripheral [ Brachial] Respiratory 20 17 19 Rate Blood Pressure 148/75 H 166/73 H 152/75 H [Upper Arm] O2 Sat by Pulse 97 97 97 Oximetry 06/27/18 06/27/18 06/27/18 15:29 16:00 16:23 Temperature [ 36.4 C Temporal] Pulse, 76 76 80 Peripheral [ Brachial] Respiratory 19 20 23 H Rate Blood Pressure 167/72 H 163/106 H 134/75 [Upper Arm] O2 Sat by Pulse 97 94 L 97 Oximetry 06/27/18 16:40 Temperature [ Temporal] Pulse, 79 Peripheral [ Brachial] Respiratory 22 H Rate Blood Pressure 146/75 H [Upper Arm] O2 Sat by Pulse 96 Oximetry - Orders/Labs/Meds Orders: Active Orders 24 hr Category Date Time Status Blood Glucose Check, Bedside [RC] STAT Care 06/27/18 13:56 Active Blood Glucose Check, Bedside [RC] STAT Care 06/27/18 15:59 Active Cardiac Monitoring [RC] STAT Care 06/27/18 13:56 Active DC Hull Catheter [Urinary Catheter Removal] [RC] Per Care 06/27/18 16:38 Active Unit Routine EKG Documentation Completion [RC] ASDIRECTED Care 06/27/18 13:56 Active Hull Catheter Insertion [Insert Urinary Catheter] [OM. Care 06/27/18 14:30 Ordered PC] Q24H NIH Stroke Scale [RC] ASDIRECTED Care 06/27/18 13:56 Active Oxygen Therapy, ED [RC] CONTINUOUS Care 06/27/18 13:56 Active Peripheral IV Care [RC] . DIRECTED Care 06/27/18 13:56 Active Pulse Oximetry [RC] CONTINUOUS Care 06/27/18 13:56 Active Up With Assistance [RC] ASDIRECTED Care 06/27/18 13:56 Active Urinary Catheter Assessment [RC] ASDIRECTED Care 06/27/18 14:27 Active Vital Signs [RC] PFP Care 06/27/18 13:56 Active Nothing per Oral Now Diet [DIET] Diet 06/27/18 Breakfast Active Chest 1V Frontal [CR] Stat Exams 06/27/18 13:56 Taken Head wo Cont [CT] Stat Exams 06/27/18 13:56 Taken ACETONE,URINE [URCHEM] Stat Lab 06/27/18 15:26 Ordered CULTURE URINE [RM] Stat Lab 06/27/18 15:26 Received PROLACTIN [REF] Stat Lab 06/27/18 14:15 Received Sodium Chloride 0.9% [Normal Saline] 1,000 ml Med 06/27/18 14:30 Active IV ASDIRECTED Sodium Chloride 0.9% [Saline Flush] Med 06/27/18 13:56 Active 10 ml FLUSH ASDIRECTED PRN Obtain Past Medical Record [OM.PC] Stat Oth 06/27/18 13:56 Active Peripheral IV Insertion Adult [OM.PC] Stat Oth 06/27/18 13:56 Ordered Resuscitation Status Stat Resus Stat 06/27/18 13:56 Ordered Medication Orders Sodium Chloride (Normal Saline) 1,000 mls @ 150 mls/hr IV ASDIRECTED CHRIS Last Admin: 06/27/18 15:44 Dose: 150 mls/hr Sodium Chloride (Saline Flush) 10 ml FLUSH ASDIRECTED PRN PRN Reason: Keep Vein Open Labs: Laboratory Tests 06/27/18 06/27/18 06/27/18 Range/Units 14:15 14:15 14:15 WBC 5.5 (4.0-10.2) K/uL RBC 4.04 L (4.33-5.41) M/uL Hgb 11.7 L (13.1-16.8) g/dL Hct 34.8 L (39.0-49.0) % MCV 86.1 (84.0-98.0) fL MCH 29.0 (28.2-33.3) pg MCHC 33.6 (31.7-36.0) g/dL RDW 14.7 H (11.2-14.1) % Plt Count 310 (150-350) K/uL Neut % (Auto) 49.5 (45.0-80.0) % Lymph % (Auto) 33.9 (10.0-50.0) % Posey % (Auto) 13.9 (2.0-14.0) % Eos % (Auto) 2.2 (0.0-5.0) % Baso % (Auto) 0.5 (0.0-2.0) % Neut # (Auto) 2.73 (1.40-7.00) K/uL Lymph # (Auto) 1.87 (0.50-3.50) K/uL Posey # (Auto) 0.77 (0.00-1.00) K/uL Eos # (Auto) 0.12 (0.00-0.50) K/uL Baso # (Auto) 0.03 (0.00-0.20) K/uL PT 12.3 H (9.8-11.7) SEC INR 1.1 APTT 27.4 (22.1-29.8) SEC D-Dimer, Quantitative 304 (0-400) ng/mL Sodium (136-145) mmol/L Potassium (3.5-5.1) mmol/L Chloride (98-107) mmol/L Carbon Dioxide (21.0-32.0) mmol/L BUN (7-18) mg/dL Creatinine (0.51-1.17) mg/dL Est Cr Clr Drug Dosing Estimated GFR (MDRD) mL/min Glucose (74-106) mg/dL POC Glucose (65-110) mg/dl Lactic Acid (0.4-2.0) mmol/L Uric Acid (2.6-7.2) mg/dL Calcium (8.5-10.1) mg/dL Phosphorus (2.6-4.7) mg/dL Magnesium (1.8-2.4) mg/dL Total Bilirubin (0.2-1.0) mg/dL AST (15-37) U/L ALT (12-78) U/L Alkaline Phosphatase (46-116) IU/L Creatine Kinase (26-308) U/L Creatine Kinase Index (0.0-2.5) % CK-MB (CK-2) (0.00-3.60) ng/mL Troponin I (0.000-0.056) ng/mL NT-Pro-B Natriuret Pep (0-125) pg/mL Total Protein (6.4-8.2) g/dL Albumin (3.4-5.0) g/dL TSH, Ultra Sensitive (0.358-3.740) mIU/mL Specimen Type Urine Color Urine Appearance Urine pH (5.0-9.0) Ur Specific Rhodhiss (1.005-1.030) Urine Protein (NEGATIVE) mg/dL Urine Glucose (UA) (NEGATIVE) mg/dL Urine Ketones (NEGATIVE) mg/dL Urine Occult Blood (NEGATIVE) Urine Nitrite (NEGATIVE) Urine Bilirubin (NEGATIVE) Urine Acetone (NEGATIVE) Urine Urobilinogen (0.2-1.0) E.U./dL Ur Leukocyte Esterase (NEGATIVE) Urine RBC /HPF Urine WBC /HPF Ur Epithelial Cells /LPF Urine Bacteria (NONE TO FEW) /HPF Ketones 06/27/18 06/27/18 06/27/18 Range/Units 14:15 14:15 14:15 WBC (4.0-10.2) K/uL RBC (4.33-5.41) M/uL Hgb (13.1-16.8) g/dL Hct (39.0-49.0) % MCV (84.0-98.0) fL MCH (28.2-33.3) pg MCHC (31.7-36.0) g/dL RDW (11.2-14.1) % Plt Count (150-350) K/uL Neut % (Auto) (45.0-80.0) % Lymph % (Auto) (10.0-50.0) % Posey % (Auto) (2.0-14.0) % Eos % (Auto) (0.0-5.0) % Baso % (Auto) (0.0-2.0) % Neut # (Auto) (1.40-7.00) K/uL Lymph # (Auto) (0.50-3.50) K/uL Posey # (Auto) (0.00-1.00) K/uL Eos # (Auto) (0.00-0.50) K/uL Baso # (Auto) (0.00-0.20) K/uL PT (9.8-11.7) SEC INR APTT (22.1-29.8) SEC D-Dimer, Quantitative (0-400) ng/mL Sodium 134 L (136-145) mmol/L Potassium 4.2 (3.5-5.1) mmol/L Chloride 97 L (98-107) mmol/L Carbon Dioxide 30.4 (21.0-32.0) mmol/L BUN 45 H (7-18) mg/dL Creatinine 2.13 H (0.51-1.17) mg/dL Est Cr Clr Drug Dosing TNP Estimated GFR (MDRD) 31 mL/min Glucose 426 H* (74-106) mg/dL POC Glucose (65-110) mg/dl Lactic Acid 1.6 (0.4-2.0) mmol/L Uric Acid 9.7 H (2.6-7.2) mg/dL Calcium 9.2 (8.5-10.1) mg/dL Phosphorus 3.5 (2.6-4.7) mg/dL Magnesium 2.0 (1.8-2.4) mg/dL Total Bilirubin 0.4 (0.2-1.0) mg/dL AST 22 (15-37) U/L ALT 31 (12-78) U/L Alkaline Phosphatase 107 (46-116) IU/L Creatine Kinase 82 (26-308) U/L Creatine Kinase Index 3.3 H (0.0-2.5) % CK-MB (CK-2) 2.70 (0.00-3.60) ng/mL Troponin I 0.000 (0.000-0.056) ng/mL NT-Pro-B Natriuret Pep 357 H (0-125) pg/mL Total Protein 8.4 H (6.4-8.2) g/dL Albumin 3.3 L (3.4-5.0) g/dL TSH, Ultra Sensitive 0.525 (0.358-3.740) mIU/mL Specimen Type Urine Color Urine Appearance Urine pH (5.0-9.0) Ur Specific Rhodhiss (1.005-1.030) Urine Protein (NEGATIVE) mg/dL Urine Glucose (UA) (NEGATIVE) mg/dL Urine Ketones (NEGATIVE) mg/dL Urine Occult Blood (NEGATIVE) Urine Nitrite (NEGATIVE) Urine Bilirubin (NEGATIVE) Urine Acetone (NEGATIVE) Urine Urobilinogen (0.2-1.0) E.U./dL Ur Leukocyte Esterase (NEGATIVE) Urine RBC /HPF Urine WBC /HPF Ur Epithelial Cells /LPF Urine Bacteria (NONE TO FEW) /HPF Ketones 06/27/18 06/27/18 06/27/18 Range/Units 14:15 15:26 15:26 WBC (4.0-10.2) K/uL RBC (4.33-5.41) M/uL Hgb (13.1-16.8) g/dL Hct (39.0-49.0) % MCV (84.0-98.0) fL MCH (28.2-33.3) pg MCHC (31.7-36.0) g/dL RDW (11.2-14.1) % Plt Count (150-350) K/uL Neut % (Auto) (45.0-80.0) % Lymph % (Auto) (10.0-50.0) % Posey % (Auto) (2.0-14.0) % Eos % (Auto) (0.0-5.0) % Baso % (Auto) (0.0-2.0) % Neut # (Auto) (1.40-7.00) K/uL Lymph # (Auto) (0.50-3.50) K/uL Posey # (Auto) (0.00-1.00) K/uL Eos # (Auto) (0.00-0.50) K/uL Baso # (Auto) (0.00-0.20) K/uL PT (9.8-11.7) SEC INR APTT (22.1-29.8) SEC D-Dimer, Quantitative (0-400) ng/mL Sodium (136-145) mmol/L Potassium (3.5-5.1) mmol/L Chloride (98-107) mmol/L Carbon Dioxide (21.0-32.0) mmol/L BUN (7-18) mg/dL Creatinine (0.51-1.17) mg/dL Est Cr Clr Drug Dosing Estimated GFR (MDRD) mL/min Glucose (74-106) mg/dL POC Glucose (65-110) mg/dl Lactic Acid (0.4-2.0) mmol/L Uric Acid (2.6-7.2) mg/dL Calcium (8.5-10.1) mg/dL Phosphorus (2.6-4.7) mg/dL Magnesium (1.8-2.4) mg/dL Total Bilirubin (0.2-1.0) mg/dL AST (15-37) U/L ALT (12-78) U/L Alkaline Phosphatase (46-116) IU/L Creatine Kinase (26-308) U/L Creatine Kinase Index (0.0-2.5) % CK-MB (CK-2) (0.00-3.60) ng/mL Troponin I (0.000-0.056) ng/mL NT-Pro-B Natriuret Pep (0-125) pg/mL Total Protein (6.4-8.2) g/dL Albumin (3.4-5.0) g/dL TSH, Ultra Sensitive (0.358-3.740) mIU/mL Specimen Type Urincath Urine Color Yellow Urine Appearance Clear Urine pH 5.5 (5.0-9.0) Ur Specific Rhodhiss 1.010 (1.005-1.030) Urine Protein Negative (NEGATIVE) mg/dL Urine Glucose (UA) 500 H (NEGATIVE) mg/dL Urine Ketones Negative (NEGATIVE) mg/dL Urine Occult Blood Negative (NEGATIVE) Urine Nitrite Negative (NEGATIVE) Urine Bilirubin Negative (NEGATIVE) Urine Acetone Negative (NEGATIVE) Urine Urobilinogen 0.2 (0.2-1.0) E.U./dL Ur Leukocyte Esterase Negative (NEGATIVE) Urine RBC 0-5 /HPF Urine WBC 0-5 /HPF Ur Epithelial Cells Few /LPF Urine Bacteria Not seen (NONE TO FEW) /HPF Ketones Negative 06/27/18 Range/Units 16:00 WBC (4.0-10.2) K/uL RBC (4.33-5.41) M/uL Hgb (13.1-16.8) g/dL Hct (39.0-49.0) % MCV (84.0-98.0) fL MCH (28.2-33.3) pg MCHC (31.7-36.0) g/dL RDW (11.2-14.1) % Plt Count (150-350) K/uL Neut % (Auto) (45.0-80.0) % Lymph % (Auto) (10.0-50.0) % Posey % (Auto) (2.0-14.0) % Eos % (Auto) (0.0-5.0) % Baso % (Auto) (0.0-2.0) % Neut # (Auto) (1.40-7.00) K/uL Lymph # (Auto) (0.50-3.50) K/uL Posey # (Auto) (0.00-1.00) K/uL Eos # (Auto) (0.00-0.50) K/uL Baso # (Auto) (0.00-0.20) K/uL PT (9.8-11.7) SEC INR APTT (22.1-29.8) SEC D-Dimer, Quantitative (0-400) ng/mL Sodium (136-145) mmol/L Potassium (3.5-5.1) mmol/L Chloride (98-107) mmol/L Carbon Dioxide (21.0-32.0) mmol/L BUN (7-18) mg/dL Creatinine (0.51-1.17) mg/dL Est Cr Clr Drug Dosing Estimated GFR (MDRD) mL/min Glucose (74-106) mg/dL POC Glucose 295 H* (65-110) mg/dl Lactic Acid (0.4-2.0) mmol/L Uric Acid (2.6-7.2) mg/dL Calcium (8.5-10.1) mg/dL Phosphorus (2.6-4.7) mg/dL Magnesium (1.8-2.4) mg/dL Total Bilirubin (0.2-1.0) mg/dL AST (15-37) U/L ALT (12-78) U/L Alkaline Phosphatase (46-116) IU/L Creatine Kinase (26-308) U/L Creatine Kinase Index (0.0-2.5) % CK-MB (CK-2) (0.00-3.60) ng/mL Troponin I (0.000-0.056) ng/mL NT-Pro-B Natriuret Pep (0-125) pg/mL Total Protein (6.4-8.2) g/dL Albumin (3.4-5.0) g/dL TSH, Ultra Sensitive (0.358-3.740) mIU/mL Specimen Type Urine Color Urine Appearance Urine pH (5.0-9.0) Ur Specific Rhodhiss (1.005-1.030) Urine Protein (NEGATIVE) mg/dL Urine Glucose (UA) (NEGATIVE) mg/dL Urine Ketones (NEGATIVE) mg/dL Urine Occult Blood (NEGATIVE) Urine Nitrite (NEGATIVE) Urine Bilirubin (NEGATIVE) Urine Acetone (NEGATIVE) Urine Urobilinogen (0.2-1.0) E.U./dL Ur Leukocyte Esterase (NEGATIVE) Urine RBC /HPF Urine WBC /HPF Ur Epithelial Cells /LPF Urine Bacteria (NONE TO FEW) /HPF Ketones Urine acetone pending. Urine specimen set up for culture and sensitivity. Meds: Medications Generic Name Dose Route Start Last Admin Trade Name Freq PRN Reason Stop Dose Admin Sodium Chloride 1,000 mls @ 150 mls/hr 06/27/18 14:30 06/27/18 15:44 Normal Saline IV 150 mls/hr ASDIRECTED CHRIS Administration Sodium Chloride 10 ml 06/27/18 13:56 Saline Flush FLUSH ASDIRECTED PRN Keep Vein Open Discontinued Medications Generic Name Dose Route Start Last Admin Trade Name Freq PRN Reason Stop Dose Admin Famotidine 40 mg 06/27/18 13:56 06/27/18 14:20 Pepcid IVPUSH 06/27/18 13:57 40 mg ONETIME ONE Administration Insulin Human Regular 10 unit 06/27/18 14:17 06/27/18 14:19 Humulin R IV 06/27/18 14:18 10 units ONETIME ONE Administration - Radiology Interpretation Free Text/Narrative:: school lunch monitor showed normal sinus rhythm in the 70s to 80s with no ectopy, etc. Chest x-ray, portable, shows evidence of moderate cardiomegaly with mild to moderate mostly centralized CHF and/or pulmonary hypertension. Moderate COPD changes also present with no pulmonary infiltrates, pneumothorax, etc. and overall poor inspiratory film. Mild small left pleural effusion present. Moderate prominence of the proximal aortic arch consistent with previously known mild thoracic aortic aneurysm. CT of the head without contrast report shows likely stable cerebral microvascular disease and cerebral atrophy with no evidence of acute CVA, etc.. Note that preliminary verbal telephone report from radiologist was not received despite previous request. Departure - Departure Time of Disposition: 17:35 Disposition: DC[facility] Condition: Fair Clinical Impression: IDDM (insulin dependent diabetes mellitus), Organic brain syndrome (chronic), Renal insufficiency, CVA, old, cognitive deficits, Hypoalbuminemia Coronary artery disease Qualifiers: Coronary Disease-Associated Artery/Lesion type: [place] artery [place] vs. transplanted heart: [place] heart Associated angina: without angina Qualified Code(s): I25.10 - Atherosclerotic heart disease of [place] coronary artery without angina pectoris Anemia Qualifiers: Anemia type: due to chronic kidney disease Chronic kidney disease stage: stage 3 (moderate) Qualified Code(s): N18.3 - Chronic kidney disease, stage 3 ( moderate) - Discharge Information *PRESCRIPTION DRUG MONITORING PROGRAM REVIEWED*: Not Applicable *COPY OF PRESCRIPTION DRUG MONITORING REPORT IN PATIENT COURTNEY: Not Applicable Prescriptions: Insulin Aspart [NovoLOG] See Protocol SQ WITHMEALSANDBED #1 bottle Forms: ED Department Discharge Additional Instructions: 1. Update [facility] and regular provider in the a.m. concerning patient's sliding scale, change in medical therapy, and today's emergency room evaluation. 2. Accu-Cheks 4 times a day before meals and at bedtime with additional sliding scale as above until otherwise directed by [facility]. Additional 3 AM Accu- Chek this evening with no sliding scale 3. Strict fall precautions as before 4. Neurology checks and vital signs every shift until [facility] is updated as above - Problem List & Annotations (1) CVA, old, cognitive deficits SNOMED Code(s): 297187109, 124693671, 525193891, 679896709 Code(s): I69.319 - UNSP SYMPTOMS AND SIGNS W COGN FNCTNS FOL CEREBRAL INFRC Status: Chronic Priority: Medium Annotation/Comment:: Note that secondary to above history a stroke code was called by the emergency room nurse. Based on review of history, however, patient's symptoms were likely related to significant hyperglycemia prior to transfer. Note negative CT scan of the head as above. Patient back to normal baseline at time of discharge with no evidence of repeat CVA. Continue NO CODE STATUS (2) IDDM (insulin dependent diabetes mellitus) SNOMED Code(s): 09158228 Code(s): E11.9 - TYPE 2 DIABETES MELLITUS WITHOUT COMPLICATIONS; Z79.4 - PROFESSIONAL ATHLETE (CURRENT) USE OF INSULIN Status: Acute Priority: High Annotation /Comment:: Long history of labile IDDM with significant hyperglycemia prior to transfer. Initial Accu-Chek of 420 mg percent in the emergency room with previous subcutaneous NovoLog given prior to patient's transfer. Human Regular insulin 10 units given IV with excellent results and patient much more alert after this therapy. IV fluids were initiated with caution secondary to his history of CHF as below. Accu-Chek prior to transfer of 295 mg percent. Patient did receive a total of 137 mL of normal saline prior to transfer with late initiation of IV fluids secondary to additional stroke code in our emergency room at the time of his care. No sequelae from this delay in therapy. (3) Organic brain syndrome (chronic) SNOMED Code(s): 752657458 Code(s): F09 - UNSP MENTAL DISORDER DUE TO KNOWN PHYSIOLOGICAL CONDITION Status: Chronic Priority: Medium Annotation/Comment:: Back to normal baseline as above. (4) COPD (chronic obstructive pulmonary disease) SNOMED Code(s): 99601137 Code(s): J44.9 - CHRONIC OBSTRUCTIVE PULMONARY DISEASE, UNSPECIFIED Status : Chronic Priority: Medium Annotation/Comment:: No recent fever or bronchitic type symptoms. No evidence of aspiration from today's episode. Qualifiers: COPD type: emphysema Emphysema type: panlobular Qualified Code(s): J43.1 - Panlobular emphysema (5) CHF (congestive heart failure) SNOMED Code(s): 04454497 Code(s): I50.9 - HEART FAILURE, UNSPECIFIED Status: Chronic Priority: High Annotation/Comment:: Stable mild CHF with excellent urine output during the emergency room care including 925 mL of urine by Hull catheter. Secondary chronic hyponatremia from his CHF. No chest pain or true anginal type symptoms. Overall negative cardiac enzymes and EKG. Chest pain protocol not initiated in the emergency room secondary to absence of anginal type symptoms. Mild BNP elevation artifactually elevated CK index elevation secondary to low baseline CK. No further echocardiogram, etc. secondary to comfort care. Qualifiers: Heart failure type: combined systolic and diastolic Heart failure chronicity: acute on chronic Qualified Code(s): I50.43 - Acute on chronic combined systolic (congestive) and diastolic (congestive) heart failure (6) Hyperuricemia SNOMED Code(s): 64150589 Code(s): E79.0 - HYPERURICEMIA W/O SIGNS OF INFLAM ARTHRIT AND TOPHACEOUS DIS Status: Acute Priority: Medium Onset Date: 06/27/18 Annotation/ Comment:: Newly diagnosed. Continue to observe closely by his regular providers. No gout-type symptoms at this time. (7) Anemia SNOMED Code(s): 604696471 Code(s): D64.9 - ANEMIA, UNSPECIFIED Status: Chronic Priority: Medium Annotation/Comment:: Anemia likely secondary to chronic diseases including diabetic nephropathy. Qualifiers: Anemia type: due to chronic kidney disease Chronic kidney disease stage: stage 3 (moderate) Qualified Code(s): N18.3 - Chronic kidney disease, stage 3 (moderate); D63.1 - Anemia in chronic kidney disease (8) Coronary artery disease SNOMED Code(s): 86258788 Code(s): I25.10 - ATHSCL HEART DISEASE OF [place] CORONARY ARTERY W/O ANG PCTRS Status: Chronic Priority: Medium Annotation/Comment:: As above Qualifiers: Coronary Disease-Associated Artery/Lesion type: [place] artery [place] vs. transplanted heart: [place] heart Associated angina: without angina Qualified Code(s): I25.10 - Atherosclerotic heart disease of [place] coronary artery without angina pectoris (9) Hyponatremia SNOMED Code(s): 34197823 Code(s): E87.1 - HYPO-OSMOLALITY AND HYPONATREMIA Status: Chronic Priority: Medium Annotation/Comment:: As above (10) Renal insufficiency SNOMED Code(s): 948560974, 022846232 Code(s): N28.9 - DISORDER OF KIDNEY AND URETER, UNSPECIFIED Status: Chronic Priority: Medium Annotation/Comment:: Stable by history and medical records. (11) Hypoalbuminemia SNOMED Code(s): 370371791 Code(s): E88.09 - OTH DISORDERS OF PLASMA-PROTEIN METABOLISM, NEC Status: Acute Priority: Medium Onset Date: 06/27/18 Annotation/Comment:: Observe for now. Consider high protein Glucerna supplements. - Problem List Review Problem List Initiated/Reviewed/Updated: Yes - My Orders Last 24 Hours: My Active Orders 06/27/18 13:56 Blood Glucose Check, Bedside [RC] STAT Cardiac Monitoring [RC] STAT EKG Documentation Completion [RC] ASDIRECTED NIH Stroke Scale [RC] ASDIRECTED Oxygen Therapy, ED [RC] CONTINUOUS Peripheral IV Care [RC] . DIRECTED Pulse Oximetry [RC] CONTINUOUS Up With Assistance [RC] ASDIRECTED Vital Signs [RC] PFP Chest 1V Frontal [CR] Stat Head wo Cont [CT] Stat Sodium Chloride 0.9% [Saline Flush] 10 ml FLUSH ASDIRECTED PRN Obtain Past Medical Record [OM.PC] Stat Peripheral IV Insertion Adult [OM.PC] Stat Resuscitation Status Stat 06/27/18 14:15 PROLACTIN [REF] Stat 06/27/18 14:27 Urinary Catheter Assessment [RC] ASDIRECTED 06/27/18 14:30 Hull Catheter Insertion [Insert Urinary Catheter] [OM.PC] Q24H Sodium Chloride 0.9% [Normal Saline] 1,000 ml IV ASDIRECTED 06/27/18 15:26 ACETONE,URINE [URCHEM] Stat CULTURE URINE [RM] Stat 06/27/18 15:59 Blood Glucose Check, Bedside [RC] STAT 06/27/18 16:38 DC Hull Catheter [Urinary Catheter Removal] [RC] Per Unit Routine 06/27/18 Breakfast Nothing per Oral Now Diet [DIET] - Assessment/Plan Last 24 Hours: My Active Orders 06/27/18 13:56 Blood Glucose Check, Bedside [RC] STAT Cardiac Monitoring [RC] STAT EKG Documentation Completion [RC] ASDIRECTED NIH Stroke Scale [RC] ASDIRECTED Oxygen Therapy, ED [RC] CONTINUOUS Peripheral IV Care [RC] . DIRECTED Pulse Oximetry [RC] CONTINUOUS Up With Assistance [RC] ASDIRECTED Vital Signs [RC] PFP Chest 1V Frontal [CR] Stat Head wo Cont [CT] Stat Sodium Chloride 0.9% [Saline Flush] 10 ml FLUSH ASDIRECTED PRN Obtain Past Medical Record [OM.PC] Stat Peripheral IV Insertion Adult [OM.PC] Stat Resuscitation Status Stat 06/27/18 14:15 PROLACTIN [REF] Stat 06/27/18 14:27 Urinary Catheter Assessment [RC] ASDIRECTED 06/27/18 14:30 Hull Catheter Insertion [Insert Urinary Catheter] [OM.PC] Q24H Sodium Chloride 0.9% [Normal Saline] 1,000 ml IV ASDIRECTED 06/27/18 15:26 ACETONE,URINE [URCHEM] Stat CULTURE URINE [RM] Stat 06/27/18 15:59 Blood Glucose Check, Bedside [RC] STAT 06/27/18 16:38 DC Hull Catheter [Urinary Catheter Removal] [RC] Per Unit Routine 06/27/18 Breakfast Nothing per Oral Now Diet [DIET] Assessment:: As above Plan: As above. Extensive precautions were given to the patient and long term staff , who are in agreement with the treatment plan. See Patient Instructions for further treatment and plan.
[2018-06-27] MEDS ORDERED: Insulin Regular, Human 100 Units/ML 3 ML Vial IV ONE (14:17)
[2018-06-27] MEDS ORDERED: Sodium Chloride 0.9% 1,000 ML IV SCH (14:30)
[2018-06-27 14:49] LABS: CHLORIDE,CL 97 mmol/L (98-107); SODIUM,NA 134 mmol/L (136-145)
[2018-06-27 16:40] VITALS: BP 146/75
== END 2018-06-27 17:30 ==
LOC: LL.ED 13:54
DX: I69.319 Unspecified symptoms and signs involving cognitive functions following cerebral infarction (principal); I13.0 Hypertensive heart and chronic kidney disease with heart failure and stage 1 through stage 4 chronic kidney disease, or unspecified chronic kidney disease; I50.9 Heart failure, unspecified; N18.3 Chronic kidney disease, stage 3 (moderate); D63.1 Anemia in chronic kidney disease; F09 Unspecified mental disorder due to known physiological condition; E79.0 Hyperuricemia without signs of inflammatory arthritis and tophaceous disease; E11.21 Type 2 diabetes mellitus with diabetic nephropathy; E11.22 Type 2 diabetes mellitus with diabetic chronic kidney disease; I25.10 Atherosclerotic heart disease of native coronary artery without angina pectoris; Z88.8 Allergy status to other drugs, medicaments and biological substances; Z88.5 Allergy status to narcotic agent; Z79.899 Other long term (current) drug therapy; Z79.4 Long term (current) use of insulin
CPT/HCPCS: 36415; 51702; 70450; 71045; 80053; 81001; 81003; 82009; 82550; 82553; 82962; 83605; 83735; 83880; 84100; 84146; 84443; 84484; 84550; 85025; 85379; 85610; 85730; 87086; 93005; 96361; 96374; 96375; 99285; J1815-GY; J3490; J7030